=== PATIENT | female | born 1960 ===

== ENCOUNTER 2022-08-10 15:57 | Emergency (ER) | payer BC ==
[2022-08-10 16:37] LABS: BASOPHILS ABSOLUTE AUTO 0.03 K/mm3 (0.01-0.08); BASOPHILS PERCENT AUTO 0.4 % (0.1-1.2); EOSINOPHILS ABSOLUTE AUTO 0.27 K/mm3 (0.04-0.36); EOSINOPHILS PERCENT AUTO 3.7 (0.7-5.8); HEMATOCRIT 41.6 % (34.1-44.9); HEMOGLOBIN 14.3 gm/dl (11.2-15.7); IMMATURE GRAN ABSOLUTE AUTO 0.01 K/mm3 (0.00-0.10); IMMATURE GRAN PERCENT AUTO 0.1 % (<=1.0); LYMPHOCYTES ABSOLUTE AUTO 1.47 K/mm3 (1.18-3.74); LYMPHOCYTES PERCENT AUTO 20.3 % (19.3-51.7); MEAN CORPUSCULAR HEMOGLOBIN 31.3 pg (25.6-32.2); MEAN CORPUSCULAR HGB CONC 34.4 g/dl (32.2-35.5); MEAN PLATELET VOLUME 10.2 fl (9.4-12.3); MONOCYTES ABSOLUTE AUTO 0.35 K/mm3 (0.24-0.36); MONOCYTES PERCENT AUTO 4.8 % (4.7-12.5); NEUTROPHILS ABSOLUTE AUTO 5.11 K/mm3 (1.56-6.13); NEUTROPHILS PERCENT AUTO 70.7 % (34.0-71.1); PLATELET COUNT,PLT 208 K/mm3 (182-369); RED BLOOD CELL COUNT 4.57 M/mm3 (3.98-5.22); WHITE BLOOD CELL COUNT,WBC 7.24 K/mm3 (3.98-10.04)
[2022-08-10 16:53] LABS: INR 0.97; PROTHROMBIN TIME 10.4 SECONDS (9.7-12.0)
[2022-08-10 16:54] LABS: PTT,PARTIAL THROMBOPLSTIN TIME 26.6 SECONDS (21.7-31.4)
[2022-08-10 17:05] LABS: A/G RATIO 1.1 (1-2); ALANINE AMINOTRANSFERASE,ALT 25 U/L (14-59); ALKALINE PHOSPHATASE 69 U/L (46-116); ANION GAP 12.6 (5-15); ASPARTATE AMNIOTRANSFERASE,AST 22 U/L (15-37); BILIRUBIN TOTAL 0.3 mg/dL (0.2-1.0); BLOOD UREA NITROGEN,BUN 9 mg/dL (7-18); BUN/CREATININE RATIO 8.2 (14-18); CALCIUM 8.9 mg/dL (8.5-10.1); CARBON DIOXIDE,CO2 26 mEq/L (21-32); CHLORIDE,CL 104 mEq/L (98-107); CREATININE 1.1 mg/dL (0.55-1.02); EST CRCL DRUG DOSING (CG) 46.49 mL/min; ESTIMATED GFR 56 mL/min (>60); GLUCOSE RANDOM 175 mg/dL (70-99); POTASSIUM,K 3.6 mEq/L (3.5-5.1); PROTEIN TOTAL,TP 7.7 g/dl (6.4-8.2); SODIUM,NA 139 mEq/L (136-145); TSH 5.841 uIU/mL (0.358-3.74)
[2022-08-10 17:06] LABS: TROPONIN I HIGH SENSITIVITY < 4 pg/mL (<=51)
== END 2022-08-10 18:10 | disposition home or self-care (01) ==
LOC: JD.ED 15:57
DX: R00.2 Palpitations (principal)
CPT/HCPCS: 36415; 80053; 83735; 84443; 84484; 85025; 85610; 85730; 93005; 93010; 93246; 99284; 99285